=== PATIENT | female | born 1960 | race African-American/Black ===

== ENCOUNTER 2021-03-25 15:08 | Emergency (ER) | payer SELFPAY ==
[2021-03-25] MEDS ORDERED: Fluorescein Opthalmic Strip ONE (16:08)
== END 2021-03-25 16:40 | disposition home or self-care (01) ==
LOC: CSHERS 15:08
DX: S05.02XA Injury of conjunctiva and corneal abrasion without foreign body, left eye, initial encounter (principal); H11.32 Conjunctival hemorrhage, left eye; J44.9 Chronic obstructive pulmonary disease, unspecified; I11.0 Hypertensive heart disease with heart failure; I50.9 Heart failure, unspecified; E78.5 Hyperlipidemia, unspecified; M19.90 Unspecified osteoarthritis, unspecified site
CPT/HCPCS: 99283

== ENCOUNTER 2021-10-26 19:56 | Inpatient (IN) | payer SELFPAY ==
[2021-10-26 21:09] LABS: #Basophils 0.1 10x3/uL (0.0-0.2); #Eosinphils 0.3 10x3/uL (0.0-0.5); #Monocytes 0.9 10x3/uL (0.0-1.1); #Neutrophils 5.2 10x3/uL (1.5-8.4); %Basophils 0.8 % (0.0-2.0); %Eosinophils 3.6 % (0.0-6.0); %Lymphocytes 20.8 % (18.0-47.0); %Monocytes 11.4 % (0.0-10.0); Hemoglobin 11.2 g/dL (12.0-15.5); Mean Corpuscular HGB CONC 32.1 g/dL (32.0-36.0); Mean Corpuscular Hemoglobin 28.2 pg (27.0-33.0); Mean Corpuscular Volume 87.9 fl (81.6-98.3); Mean Platelet Volume 10.4 fl (7.4-10.4); Platelet Count 289 10x3/uL (150-450); RBC Distribution Width 15.7 % (11.5-14.5); Red Blood Cell (RBC) Count 3.97 10x6/uL (3.90-5.03); White Blood Cell (WBC) Count 8.2 10x3/uL (3.5-10.5)
[2021-10-26 21:19] LABS: ALT (SGPT) 17 U/L (8-55); AST (SGOT) 16 U/L (5-34); Albumin 4.2 g/dL (3.4-4.8); Alkaline Phosphatase 92 U/L (40-110); Anion Gap 14 mmol/L (10-20); BUN (Urea Nitrogen) 30 mg/dL (9.8-20.1); Bilirubin, Total 0.3 mg/dL (0.2-1.2); CK (CPK) 150 U/L (29-168); Calc. Creatinine Clearance 0 mL/min (70-130); Calcium 10.3 mg/dL (7.8-10.44); Carbon Dioxide 31 mmol/L (23-31); Estimated GFR 39; Globulin 2.4 g/dL (2.4-3.5); Glucose 97 mg/dL (80-115); Protein, Total 6.6 g/dL (5.8-8.1)
[2021-10-26] MEDS ORDERED: Enoxaparin Sodium 100 MG/ML SYRINGE ONE (21:24)
[2021-10-26 21:39] LABS: CKMB 3.9 ng/mL (0-6.6)
[2021-10-26 21:44] LABS: Chloride 102 mmol/L (98-107); Potassium 3.3 mmol/L (3.5-5.1); Sodium 144 mmol/L (136-145)
[2021-10-26] MEDS ORDERED: Aspirin Chewable 81 MG TAB ONE (22:39)
[2021-10-26] MEDS ORDERED: Calcium Carbonate 500 MG ChewTAB PO PRN (23:06)
[2021-10-26] MEDS ORDERED: Acetaminophen 325 MG TAB PO PRN (23:06)
[2021-10-26] MEDS ORDERED: Ondansetron PF 4 MG/2 ML Vial IVP PRN (23:06)
[2021-10-26] MEDS ORDERED: Senokot S 8.6-50 MG TAB PO PRN (23:06)
[2021-10-26] MEDS ORDERED: Guaifenesin DM 100-10/5 ML UDCUP PO PRN (23:06)
[2021-10-26] MEDS ORDERED: predniSONE 20 MG TAB PO SCH (23:30)
[2021-10-26] MEDS ORDERED: Potassium Chloride 20 MEQ TAB PO SCH (23:30)
[2021-10-26] MEDS ORDERED: Furosemide 20 MG/2 ML VIAL SLOW IVP SCH (23:30)
[2021-10-26] MEDS ORDERED: Potassium Chloride 20 MEQ TAB ONE (23:49)
[2021-10-26] MEDS ORDERED: predniSONE 20 MG TAB ONE (23:49)
[2021-10-26] MEDS ORDERED: Furosemide 40 MG/4 ML VIAL ONE (23:49)
[2021-10-26] MEDS ORDERED: Diltiazem 125 MG in Sodium Chloride 0.9% 100 ML IVPB SCH (23:59)
[2021-10-27] MEDS ORDERED: Diltiazem 125 MG/25 ML ONE (01:45)
[2021-10-27 03:10] LABS: SARS-CoV-2 NAA Rapid Test Not Detected (NotDetected)
[2021-10-27 05:26] LABS: CKMB 4.1 ng/mL (0-6.6)
[2021-10-27 06:07] LABS: Anion Gap 15 mmol/L (10-20); BUN (Urea Nitrogen) 31 mg/dL (9.8-20.1); Calc. Creatinine Clearance 0 mL/min (70-130); Calcium 9.7 mg/dL (7.8-10.44); Carbon Dioxide 30 mmol/L (23-31); Cardiac Risk 4.1 (Less than 4.5); Chloride 100 mmol/L (98-107); Cholesterol 186 mg/dl (< 200 Desired); Estimated GFR 43; Glucose 120 mg/dL (80-115); HDL Cholesterol 45 mg/dL (>60 Neg Risk); LDL Cholesterol, Calculated 125 mg/dL; Magnesium 1.9 mg/dL (1.6-2.6); Potassium 3.6 mmol/L (3.5-5.1); Sodium 141 mmol/L (136-145); Triglycerides 80 mg/dL (Less than 150)
[2021-10-27] MEDS: Mometasone/Formoterol 200/5 60 PUFF INH SCH ×2 (07:00→19:35)
[2021-10-27 08:57] LABS: CKMB 4.8 ng/mL (0-6.6)
[2021-10-27] MEDS ORDERED: Metoprolol Tartrate 25 MG TAB ONE (08:59)
[2021-10-27] MEDS ORDERED: Apixaban 5 MG TAB ONE (08:59)
[2021-10-27] MEDS ORDERED: Lisinopril 10 MG TAB ONE (09:00)
[2021-10-27] MEDS ORDERED: Amlodipine 5 MG TAB ONE ×2 (09:00→09:18)
[2021-10-27] MEDS ORDERED: Enoxaparin Sodium 40 MG/0.4 ML SYRINGE SC SCH (09:00)
[2021-10-27 09:07] LABS: Anion Gap 17 mmol/L (10-20); BUN (Urea Nitrogen) 26 mg/dL (9.8-20.1); Calc. Creatinine Clearance 0 mL/min (70-130); Calcium 10.1 mg/dL (7.8-10.44); Carbon Dioxide 27 mmol/L (23-31); Chloride 100 mmol/L (98-107); Estimated GFR 45; Glucose 201 mg/dL (80-115); Potassium 4.1 mmol/L (3.5-5.1); Sodium 140 mmol/L (136-145)
[2021-10-27] MEDS: Apixaban 5 MG TAB PO SCH ×2 (09:20→20:43)
[2021-10-27] MEDS: Metoprolol Tartrate 25 MG TAB PO SCH ×2 (09:20→20:43)
[2021-10-27] MEDS: Amlodipine 10 MG TAB PO SCH (09:20)
[2021-10-27] MEDS: FLUoxetine HCl 20 MG CAP PO SCH (09:20)
[2021-10-27] MEDS: Lisinopril 10 MG TAB PO SCH ×2 (09:20→20:43)
[2021-10-27 15:07] VITALS: BMI 42.0
[2021-10-27] MEDS ORDERED: Diltiazem 125 MG in Sodium Chloride 0.9% 100 ML IVPB SCH (21:00)
[2021-10-28] MEDS ORDERED: Metoprolol Tartrate 25 MG TAB PO SCH (06:00)
[2021-10-28] MEDS: Mometasone/Formoterol 200/5 60 PUFF INH SCH ×2 (07:45→19:40)
[2021-10-28] MEDS: FLUoxetine HCl 20 MG CAP PO SCH (09:45)
[2021-10-28] MEDS: Metoprolol Tartrate 25 MG TAB PO SCH ×2 (09:45→22:55)
[2021-10-28] MEDS: Lisinopril 10 MG TAB PO SCH ×2 (09:46→22:55)
[2021-10-28] MEDS: Apixaban 5 MG TAB PO SCH ×2 (09:46→22:54)
[2021-10-28] MEDS: Amlodipine 10 MG TAB PO SCH (09:47)
[2021-10-29] MEDS: Mometasone/Formoterol 200/5 60 PUFF INH SCH (06:56)
[2021-10-29] MEDS: Amlodipine 10 MG TAB PO SCH (08:49)
[2021-10-29] MEDS: FLUoxetine HCl 20 MG CAP PO SCH (08:49)
[2021-10-29] MEDS: Metoprolol Tartrate 25 MG TAB PO SCH (08:49)
[2021-10-29] MEDS: Lisinopril 10 MG TAB PO SCH (08:49)
[2021-10-29] MEDS: Apixaban 5 MG TAB PO SCH (08:50)
[2021-10-29 13:15] VITALS: BP 146/86; TEMP 96.9
== END 2021-10-29 14:42 | disposition home or self-care (01) | DRG 291 ==
LOC: CSHERS 19:56 → CSHERHOLD 22:53 → CSHTELE 10-27 14:42
PROVIDERS: ADMIT Student in an Organized Health Care Education/Training Program; ATTEND Internal Medicine
DX: I13.0 Hypertensive heart and chronic kidney disease with heart failure and stage 1 through stage 4 chronic kidney disease, or unspecified chronic kidney disease (principal); I50.33 Acute on chronic diastolic (congestive) heart failure; N17.9 Acute kidney failure, unspecified; Z68.41 Body mass index [BMI] 40.0-44.9, adult; I24.8 Other forms of acute ischemic heart disease; J44.9 Chronic obstructive pulmonary disease, unspecified; M19.90 Unspecified osteoarthritis, unspecified site; E78.5 Hyperlipidemia, unspecified; F41.9 Anxiety disorder, unspecified; F32.A Depression, unspecified; I48.91 Unspecified atrial fibrillation; E87.6 Hypokalemia; N18.2 Chronic kidney disease, stage 2 (mild); E66.01 Morbid (severe) obesity due to excess calories; G47.33 Obstructive sleep apnea (adult) (pediatric); Z20.822 Contact with and (suspected) exposure to COVID-19; Z87.891 Personal history of nicotine dependence; Z79.51 Long term (current) use of inhaled steroids; Z79.899 Other long term (current) drug therapy; Z98.890 Other specified postprocedural states
CPT/HCPCS: 36415; 71045; 80048; 80053; 80061; 82550; 82553; 83735; 83880; 84443; 84484; 85025; 93005; 93306; 93970; 94640; 94760; 96372; 96374; 96376; J1650; J1940; J7512; J7620; U0002

== ENCOUNTER 2022-03-15 19:34 | Inpatient (IN) | payer SELFPAY ==
[2022-03-15] MEDS ORDERED: Acetaminophen 500 MG TAB ONE (20:15)
[2022-03-15] MEDS ORDERED: Ondansetron PF 4 MG/2 ML Vial ONE (20:16)
[2022-03-15] MEDS ORDERED: Piperacillin/Tazobactam 3.375 GM VIAL ONE (20:16)
[2022-03-15] MEDS ORDERED: Vancomycin 1 GM VIAL ONE (20:16)
[2022-03-15 20:30] LABS: INR-International Normal Ratio 1.1; Prothrombin Time 11.7 sec (9.5-12.1)
[2022-03-15 20:33] LABS: #Basophils 0.1 10x3/uL (0.0-0.2); #Monocytes 0.9 10x3/uL (0.0-1.1); #Neutrophils 9.4 10x3/uL (1.5-8.4); %Basophils 0.5 % (0.0-2.0); %Eosinophils 0.1 % (0.0-6.0); %Lymphocytes 4.6 % (18.0-47.0); %Monocytes 8.4 % (0.0-10.0); ALT (SGPT) 18 U/L (8-55); AST (SGOT) 20 U/L (5-34); Albumin 4.4 g/dL (3.4-4.8); Alkaline Phosphatase 95 U/L (40-110); Anion Gap 16 mmol/L (10-20); BUN (Urea Nitrogen) 17 mg/dL (9.8-20.1); Bilirubin, Total 0.9 mg/dL (0.2-1.2); Calc. Creatinine Clearance 0 mL/min (70-130); Calcium 9.9 mg/dL (7.8-10.44); Carbon Dioxide 26 mmol/L (23-31); Chloride 99 mmol/L (98-107); Estimated GFR 43; Globulin 3.7 g/dL (2.4-3.5); Glucose 147 mg/dL (80-115); Hemoglobin 12.5 g/dL (12.0-15.5); Mean Corpuscular HGB CONC 33.1 g/dL (32.0-36.0); Mean Corpuscular Hemoglobin 27.1 pg (27.0-33.0); Mean Platelet Volume 10.6 fl (7.4-10.4); Platelet Count 332 10x3/uL (150-450); Potassium 3.5 mmol/L (3.5-5.1); Protein, Total 8.1 g/dL (5.8-8.1); RBC Distribution Width 15.8 % (11.5-14.5); Red Blood Cell (RBC) Count 4.61 10x6/uL (3.90-5.03); Sodium 137 mmol/L (136-145); White Blood Cell (WBC) Count 10.9 10x3/uL (3.5-10.5)
[2022-03-15 20:55] LABS: CKMB 1.2 ng/mL (0-6.6)
[2022-03-15 21:55] LABS: SARS-CoV-2 NAA Rapid Test Not Detected (NotDetected)
[2022-03-15] MEDS ORDERED: Nitroglycerin 0.4 MG TAB (25 Tab Bottle) SL PRN (23:37)
[2022-03-15] MEDS ORDERED: Acetaminophen 325 MG TAB PO PRN (23:57)
[2022-03-16 00:22] LABS: Troponin I 0.072 ng/mL (< 0.028)
[2022-03-16] MEDS ORDERED: Apixaban 5 MG TAB PO SCH (02:30)
[2022-03-16] MEDS ORDERED: Mometasone/Formoterol 60 PUFF AER INH SCH (02:30)
[2022-03-16] MEDS ORDERED: Diltiazem 125 MG, Admixture Fee 1 EACH in Sodium Chloride 0.9% 100 ML IVPB SCH (03:00)
[2022-03-16] MEDS ORDERED: Mometasone/Formoterol 60 PUFF AER INH ONE (03:05)
[2022-03-16 03:28] LABS: Hemoglobin 11.1 g/dL (12.0-15.5); Mean Corpuscular HGB CONC 31.9 g/dL (32.0-36.0); Mean Corpuscular Hemoglobin 26.6 pg (27.0-33.0); Mean Corpuscular Volume 83.5 fl (81.6-98.3); Mean Platelet Volume 10.1 fl (7.4-10.4); Platelet Count 249 10x3/uL (150-450); RBC Distribution Width 15.8 % (11.5-14.5); Red Blood Cell (RBC) Count 4.17 10x6/uL (3.90-5.03)
[2022-03-16 03:30] LABS: Anion Gap 14 mmol/L (10-20); BUN (Urea Nitrogen) 19 mg/dL (9.8-20.1); Calc. Creatinine Clearance 0 mL/min (70-130); Carbon Dioxide 27 mmol/L (23-31); Chloride 103 mmol/L (98-107); Estimated GFR 36; Glucose 119 mg/dL (80-115); Magnesium 1.5 mg/dL (1.6-2.6); Potassium 3.6 mmol/L (3.5-5.1); Sodium 140 mmol/L (136-145)
[2022-03-16 03:31] LABS: Troponin I 0.047 ng/mL (< 0.028)
[2022-03-16 03:44] LABS: MDiff Complete? YES
[2022-03-16 03:48] LABS: Platelet Morphology Comment Appears Adequate; RBC Morphology Normal
[2022-03-16] MEDS ORDERED: Apixaban 5 MG TAB ONE (04:03)
[2022-03-16] MEDS ORDERED: Azithromycin 500 MG VIAL ONE (04:03)
[2022-03-16] MEDS ORDERED: methylPREDNISolone Sod Succ 40 MG VIAL ONE ×3 (04:04→20:04)
[2022-03-16] MEDS ORDERED: NS 0.9% w/ 20 MEQ KCL 1,000 ML ONE (04:05)
[2022-03-16] MEDS: NS 0.9% w/ 20 MEQ KCL 1,000 ML/1,000 ML BAG IV SCH ×3 (04:10→04:56)
[2022-03-16] MEDS: methylPREDNISolone Sod Succ 40 MG VIAL IVP SCH ×3 (04:11→20:03)
[2022-03-16] MEDS: Azithromycin 500 MG in Sodium Chloride 0.9% 250 ML 250 ML IVPB SCH (04:11)
[2022-03-16] MEDS: Oseltamivir 75 MG CAP PO SCH ×2 (04:11→16:23)
[2022-03-16] MEDS ORDERED: cefTRIAXone\\ROCEPHIN 1 GM VIAL ONE (05:18)
[2022-03-16] MEDS: cefTRIAXone\\ROCEPHIN 1 GM in Sodium Chloride 0.9% 100 ML IVPB SCH (05:50)
[2022-03-16] MEDS ORDERED: Aspirin Chewable 81 MG TAB ONE (08:39)
[2022-03-16] MEDS ORDERED: cloNIDine 0.1 MG TAB ONE (08:39)
[2022-03-16] MEDS ORDERED: Potassium Chloride 20 MEQ TAB ONE (08:40)
[2022-03-16] MEDS ORDERED: Lisinopril 10 MG TAB ONE (08:40)
[2022-03-16] MEDS ORDERED: Furosemide 40 MG TAB ONE (08:40)
[2022-03-16] MEDS ORDERED: Acetaminophen 325 MG TAB ONE (08:52)
[2022-03-16] MEDS: Furosemide 40 MG TAB PO SCH (08:56)
[2022-03-16] MEDS: Aspirin 81 mg Enteric Coated Tablet PO SCH (08:56)
[2022-03-16] MEDS: Lisinopril 20 MG TAB PO SCH ×2 (08:56→22:07)
[2022-03-16] MEDS: Potassium Chloride 10 MEQ TAB PO SCH (08:56)
[2022-03-16] MEDS ORDERED: cloNIDine 0.1 MG TAB PO SCH (09:00)
[2022-03-16] MEDS: Mometasone/Formoterol 60 PUFF AER INH SCH (19:55)
[2022-03-16 21:32] VITALS: BMI 46.2
[2022-03-16] MEDS: Apixaban 5 MG TAB PO SCH (22:06)
[2022-03-16] MEDS: Metoprolol Tartrate 25 MG TAB PO SCH (22:07)
[2022-03-17] MEDS: NS 0.9% w/ 20 MEQ KCL 1,000 ML/1,000 ML BAG IV SCH ×2 (00:40→11:50)
[2022-03-17] MEDS: Azithromycin 500 MG in Sodium Chloride 0.9% 250 ML 250 ML IVPB SCH (03:31)
[2022-03-17] MEDS: Oseltamivir 75 MG CAP PO SCH ×2 (03:32→14:20)
[2022-03-17] MEDS: methylPREDNISolone Sod Succ 40 MG VIAL IVP SCH ×3 (03:32→21:02)
[2022-03-17] MEDS: cefTRIAXone\\ROCEPHIN 1 GM in Sodium Chloride 0.9% 100 ML IVPB SCH (05:37)
[2022-03-17] MEDS: Furosemide 40 MG TAB PO SCH (06:46)
[2022-03-17] MEDS: Mometasone/Formoterol 60 PUFF AER INH SCH ×2 (07:25→19:55)
[2022-03-17] MEDS: Metoprolol Tartrate 25 MG TAB PO SCH ×2 (08:45→21:07)
[2022-03-17] MEDS: Aspirin 81 mg Enteric Coated Tablet PO SCH (08:45)
[2022-03-17] MEDS: Apixaban 5 MG TAB PO SCH ×2 (08:45→21:07)
[2022-03-17] MEDS: Lisinopril 20 MG TAB PO SCH ×2 (08:45→21:06)
[2022-03-17] MEDS: Potassium Chloride 10 MEQ TAB PO SCH (08:45)
[2022-03-17] MEDS ORDERED: Furosemide 40 MG/4 ML VIAL SLOW IVP SCH (14:00)
[2022-03-18] MEDS: Azithromycin 500 MG in Sodium Chloride 0.9% 250 ML 250 ML IVPB SCH (03:58)
[2022-03-18] MEDS: Oseltamivir 75 MG CAP PO SCH ×2 (03:58→15:05)
[2022-03-18] MEDS: methylPREDNISolone Sod Succ 40 MG VIAL IVP SCH ×2 (03:58→10:00)
[2022-03-18] MEDS: cefTRIAXone\\ROCEPHIN 1 GM in Sodium Chloride 0.9% 100 ML IVPB SCH (05:46)
[2022-03-18] MEDS: Mometasone/Formoterol 60 PUFF AER INH SCH (08:26)
[2022-03-18 08:39] LABS: Anion Gap 13 mmol/L (10-20); BUN (Urea Nitrogen) 22 mg/dL (9.8-20.1); Calc. Creatinine Clearance 109 mL/min (70-130); Calcium 9.2 mg/dL (7.8-10.44); Carbon Dioxide 29 mmol/L (23-31); Chloride 99 mmol/L (98-107); Estimated GFR 61; Glucose 157 mg/dL (80-115); Magnesium 1.8 mg/dL (1.6-2.6); Potassium 3.6 mmol/L (3.5-5.1); Sodium 137 mmol/L (136-145)
[2022-03-18] MEDS: Furosemide 40 MG TAB PO SCH (10:01)
[2022-03-18] MEDS: Lisinopril 20 MG TAB PO SCH (10:01)
[2022-03-18] MEDS: Potassium Chloride 10 MEQ TAB PO SCH (10:02)
[2022-03-18] MEDS: Metoprolol Tartrate 25 MG TAB PO SCH (10:02)
[2022-03-18] MEDS: Apixaban 5 MG TAB PO SCH (10:02)
[2022-03-18] MEDS: Aspirin 81 mg Enteric Coated Tablet PO SCH (10:02)
[2022-03-18 14:25] VITALS: TEMP 98.5
[2022-03-18 16:53] VITALS: BP 137/88
== END 2022-03-18 17:20 | disposition home or self-care (01) | DRG 193 ==
LOC: CSHERS 19:34 → CSHERHOLD 23:37 → INTOOBSV 03-16 02:10 → UNDOADMOB 03-16 02:10 → OBSVTOIN 03-16 15:07 → CSHTELE 03-16 20:55
PROVIDERS: ADMIT Family Medicine; ATTEND Family Medicine
DX: J10.1 Influenza due to other identified influenza virus with other respiratory manifestations (principal); I50.33 Acute on chronic diastolic (congestive) heart failure; J96.01 Acute respiratory failure with hypoxia; J44.1 Chronic obstructive pulmonary disease with (acute) exacerbation; Z68.42 Body mass index [BMI] 45.0-49.9, adult; I11.0 Hypertensive heart disease with heart failure; E78.5 Hyperlipidemia, unspecified; Z20.822 Contact with and (suspected) exposure to COVID-19; R77.8 Other specified abnormalities of plasma proteins; F41.9 Anxiety disorder, unspecified; E66.01 Morbid (severe) obesity due to excess calories; I48.0 Paroxysmal atrial fibrillation; G47.33 Obstructive sleep apnea (adult) (pediatric); Z79.51 Long term (current) use of inhaled steroids; Z79.899 Other long term (current) drug therapy; Z79.82 Long term (current) use of aspirin; Z98.890 Other specified postprocedural states; Z83.3 Family history of diabetes mellitus; Z87.891 Personal history of nicotine dependence
CPT/HCPCS: 36415; 71045; 80048; 80053; 82553; 83605; 83735; 83880; 84484; 85025; 85610; 85730; 87040; 93005; 93010; 94640; 94664; 94760; 96374; 96375; 96376; G0378; J0456; J0696; J1940; J2405; J2543; J2920; J3370; J3480; J3490; J7050; J7620

== ENCOUNTER 2023-01-29 15:18 | Emergency (ER) | payer SELFPAY ==
[2023-01-29] MEDS ORDERED: Morphine 4 MG/ML VIAL ONE (16:20)
[2023-01-29 17:50] LABS: #Basophils 0.1 10x3/uL (0.0-0.2); #Eosinphils 0.1 10x3/uL (0.0-0.5); #Monocytes 1.1 10x3/uL (0.0-1.1); %Basophils 0.9 % (0.0-2.0); %Eosinophils 1.3 % (0.0-6.0); %Lymphocytes 25.8 % (18.0-47.0); %Monocytes 12.8 % (0.0-10.0); ALT (SGPT) 14 U/L (8-55); AST (SGOT) 15 U/L (5-34); Albumin 3.5 g/dL (3.4-4.8); Alkaline Phosphatase 74 U/L (40-110); Anion Gap 14 mmol/L (10-20); BUN (Urea Nitrogen) 17 mg/dL (9.8-20.1); Bilirubin, Total 0.5 mg/dL (0.2-1.2); Calc. Creatinine Clearance 0 mL/min (70-130); Calcium 8.9 mg/dL (7.8-10.44); Carbon Dioxide 26 mmol/L (23-31); Chloride 102 mmol/L (98-107); Estimated GFR 47; Globulin 3.6 g/dL (2.4-3.5); Glucose 96 mg/dL (80-115); Hematocrit 32.6 % (34.9-44.5); Hemoglobin 10.3 g/dL (12.0-15.5); Magnesium 1.7 mg/dL (1.6-2.6); Mean Corpuscular HGB CONC 31.6 g/dL (32.0-36.0); Mean Corpuscular Volume 85.6 fl (81.6-98.3); Mean Platelet Volume 9.8 fl (7.4-10.4); Platelet Count 349 10x3/uL (150-450); Potassium 3.3 mmol/L (3.5-5.1); Protein, Total 7.1 g/dL (5.8-8.1); RBC Distribution Width 16.2 % (11.5-14.5); Red Blood Cell (RBC) Count 3.81 10x6/uL (3.90-5.03); Sodium 139 mmol/L (136-145); White Blood Cell (WBC) Count 8.5 10x3/uL (3.5-10.5)
== END 2023-01-29 18:50 | disposition home or self-care (01) ==
LOC: CSHERS 15:18
DX: K20.90 Esophagitis, unspecified without bleeding (principal); E78.5 Hyperlipidemia, unspecified; J44.9 Chronic obstructive pulmonary disease, unspecified; I11.0 Hypertensive heart disease with heart failure; I50.9 Heart failure, unspecified
CPT/HCPCS: 36415; 70491; 80053; 83735; 85025; 96374; J2270